=== PATIENT | male | born 1990 | race Two or more races ===

== ENCOUNTER 2023-01-02 21:18 | Emergency (ER) | payer SELFPAY ==
[~2023-01-02] VITALS: Ht 185.4 cm; Wt 83.9 kg
[2023-01-02 22:59] VITALS: BP 118/84
[2023-01-02] MEDS ORDERED: predniSONE 20 MG TABLET PO ONE (23:00)
[2023-01-02] MEDS ORDERED: KETOROLAC TROMETHAMINE INJ 60 MG/2 ML VIAL IM ONE ×2 (23:00→23:05)
[2023-01-02] MEDS ORDERED: CYCL5TAB PO (23:04)
[2023-01-02] MEDS ORDERED: PRED20TA PO (23:04)
[2023-01-02] MEDS ORDERED: NABU-141 PO (23:04)
[2023-01-02] MEDS ORDERED: predniSONE 20 MG TABLET ONE (23:06)
--- NOTE | 2023-01-02 23:06 | NUR ---
Patient discharged to home in stable condition. Written and verbal after care instructions given. Patient verbalizes understanding of instruction.
== END 2023-01-02 23:06 | disposition home or self-care (01) ==
LOC: ER 21:21
DX: M54.50 Low back pain, unspecified (principal); F17.210 Nicotine dependence, cigarettes, uncomplicated
CPT/HCPCS: 99283; 99406; 96372; J7512; J1885